=== PATIENT | female | born 1930 | race Caucasian/White ===

== ENCOUNTER 2016-04-01 06:58 | Day surgery (SDC) | payer OTHER ==
[2016-04-01] VITALS (14 sets, daily range): BP systolic 114–148; BP diastolic 70–85; PULSE 64–97; RESP 16–18; TEMP 97.5–98.9; O2SAT 96–100
[~2016-04-01] VITALS: Ht 152.4 cm; Wt 61.5 kg
[2016-04-01 08:00] LABS: AUTOMATED NEUTROPHIL # 4.4 TH/MM3 (1.8-7.7); BASOPHIL % 0.6 % (0.0-2.0); EOSINOPHIL % 0.7 % (0.0-4.0); HEMATOCRIT 43.3 % (35.0-46.0); HEMO FLAGS DIFF FINAL; LYMPH % 16.8 % (9.0-44.0); MEAN CELL VOLUME 91.3 FL (80.0-100.0); MEAN CORPUSCULAR HEMOGLOBIN 29.9 PG (27.0-34.0); MEAN CORPUSCULAR HGB CONC 32.7 % (32.0-36.0); MONO % 10.1 % (0.0-8.0); NEUT % 71.8 % (16.0-70.0); PLATELET COUNT 168 TH/MM3 (150-450); RED BLOOD COUNT 4.74 MIL/MM3 (4.00-5.30); WHITE BLOOD COUNT 6.2 TH/MM3 (4.0-11.0)
[2016-04-01 08:11] LABS: APTT (PATIENT) 27.1 SEC (24.3-30.1); INTERNATIONAL NORMALIZED RATIO 1.5 RATIO; PROTHROMBIN TIME - PATIENT 17.3 SEC (9.8-11.6)
[2016-04-01] MEDS ORDERED: ASPI1TAB69 PO (08:19)
[2016-04-01] MEDS ORDERED: INSU1INJ5 SQ (08:19)
[2016-04-01] MEDS ORDERED: ENAL5TAB PO (08:19)
[2016-04-01] MEDS ORDERED: MAGN200T PO (08:19)
[2016-04-01] MEDS ORDERED: FLUT1INH INH (08:19)
[2016-04-01] MEDS ORDERED: COUM5TAB PO (08:19)
[2016-04-01] MEDS ORDERED: AMIO200T PO (08:19)
[2016-04-01] MEDS ORDERED: CALC1TAB12 PO (08:19)
[2016-04-01] MEDS ORDERED: CINN500C PO (08:19)
[2016-04-01] MEDS ORDERED: FURO1TAB62 PO (08:19)
[2016-04-01] MEDS ORDERED: COQ-100C2 PO (08:19)
[2016-04-01] MEDS ORDERED: MULT1TAB84 PO (08:20)
[2016-04-01] MEDS ORDERED: HOME OXYGEN NASAL (08:20)
[2016-04-01] MEDS ORDERED: OMEG100010 PO (08:20)
[2016-04-01] MEDS ORDERED: [UNRECOGNIZED DRUG - CODE] T-DERMAL (08:20)
[2016-04-01] MEDS ORDERED: VITATAB11 PO (08:20)
[2016-04-01] MEDS ORDERED: METO100T9 PO (08:20)
[2016-04-01] MEDS ORDERED: LATA0.002 EACH EYE (08:20)
[2016-04-01 08:21] LABS: BICARBONATE 38.7 MEQ/L (21.0-32.0); POTASSIUM 3.1 MEQ/L (3.5-5.1)
[2016-04-01] MEDS ORDERED: CHLORHEXIDINE GLUCONATE 2 % 1 PACK (2 CLOTHS) TOP SCH (08:30)
[2016-04-01] MEDS ORDERED: INSULIN HUMAN REGULAR 1,000 UNITS/10 ML VIAL SQ PRN (08:30)
[2016-04-01] MEDS ORDERED: MUPIROCIN 2% OINT 1 APPLIC/GM SYR NASAL SCH (08:30)
[2016-04-01] MEDS ORDERED: LORazepam 1 MG TAB SL SCH (08:30)
[2016-04-01] MEDS: LACTATED RINGER'S 1000 ML IV SCH (08:30)
[2016-04-01] MEDS ORDERED: METOPROLOL TARTRATE 25 MG TAB PO PRN (08:30)
[2016-04-01] MEDS ORDERED: POVIDONE IODINE 5% (ANTISEPSIS KIT) 4 APPLICATIONS EACH NARE SCH (08:30)
[2016-04-01] MEDS ORDERED: Hold AM Insulin & AM Hypoglycemic medications in diabetic patients XX PRN (08:30)
[2016-04-01] MEDS ORDERED: NS 1000 ML IV SCH (08:30)
[2016-04-01] MEDS ORDERED: SODIUM CHLORID 0.9% 500 ML IV SCH (08:30)
[2016-04-01] MEDS ORDERED: ceFAZolin 2 GM PREMIX 50 ML IV SCH (08:30)
[2016-04-01] MEDS ORDERED: ISOPROTERENOL HCL 1 MG/5 ML AMP ONE (08:39)
[2016-04-01] MEDS ORDERED: POTASSIUM CHLORIDE INJ 40 MEQ in SODIUM CHLORID 0.9% 500 ML INJ 500 ML IV ONE (09:00)
[2016-04-01] MEDS ORDERED: VANCOMYCIN 500 MG VIAL ONE (09:21)
[2016-04-01] MEDS ORDERED: LIDOCAINE HCL 2% 50 ML VIAL ONE (09:21)
[2016-04-01] MEDS ORDERED: VANCOMYCIN HCL 1000 MG VIAL ONE (09:21)
[2016-04-01] MEDS ORDERED: ceFAZolin INJ 1,000 MG VIAL ONE (09:22)
[2016-04-01] MEDS ORDERED: HEPARIN-NS/PF INJ 500 ML ONE (09:23)
[2016-04-01] MEDS ORDERED: PHENYLEPH/NS 1000 MCG/10 ML SYR IV ONE (10:30)
[2016-04-01] MEDS ORDERED: ONDANSETRON HCL 4 MG/2 ML VIAL IV PUSH ONE (10:30)
[2016-04-01] MEDS ORDERED: PROPOFOL 200 MG/20 ML AMP IV ONE (10:30)
[2016-04-01] MEDS ORDERED: SODIUM CHLORIDE 0.9% FLUSH 5 ML FLUSH IVF PRN (10:45)
[2016-04-01] MEDS ORDERED: METOCLOPRAMIDE HCL 10 MG/2 ML VIAL IV PRN (10:45)
[2016-04-01] MEDS ORDERED: LIDOCAINE HCL 1% 50 ML VIAL INFIL PRN (10:45)
[2016-04-01] MEDS ORDERED: ACETAMINOPHEN/CODEINE 300 MG/30 MG TAB PO PRN (10:45)
[2016-04-01] MEDS ORDERED: LORazepam 2 MG/ML VIAL IV PRN (10:45)
[2016-04-01] MEDS ORDERED: BACITRACIN OINT 0.9 GM PKT TOP ONE (10:45)
[2016-04-01] MEDS ORDERED: ONDANSETRON HCL 4 MG/2 ML VIAL IV PRN (10:45)
[2016-04-01] MEDS ORDERED: ATROPINE SULFATE 1 MG/ML VIAL IV PRN (10:45)
[2016-04-01] MEDS ORDERED: SODIUM CHLOR 0.9% 250 ML INJ 250 ML IV PRN (10:45)
--- NOTE | 2016-04-01 11:43 | RADRPT ---
EXAM DATE/TIME: 04/01/2016 11:14 [place] COMPARISON: No previous studies available for comparison. INDICATIONS : Post ICD placement MEDICAL HISTORY : Congestive heart failure. SURGICAL HISTORY : None. ENCOUNTER: Initial ACUITY: 1 day PAIN SCORE: Non-responsive. LOCATION: Bilateral chest FINDINGS: Medical devices box projects over the lateral left lung. Unipolar lead tip projects in the right julisa tricle. No evidence of pneumothorax. Mild interstitial opacities in the central lungs bilaterally, left greater than right and mild hazy opacity at the right lower chest with blunting of the costophre panchito angle suggests a small right pleural effusion. CONCLUSION: No evidence of pneumothorax status post placement of AICD. Elvis Solis MD on April 01, 2016 at 11:41 Board Certified Radiologist. This report was verified electronically.
[2016-04-01] MEDS ORDERED: DO NOT ADM ANY ANTICOAGULANT DRUGS XX PRN (11:45)
[2016-04-01] MEDS: ceFAZolin 2 GM PREMIX 50 ML IV SCH (17:10)
--- NOTE | 2016-04-01 18:34 | EKG ---
Date Performed: 04/01/2016 Time Performed: 11:26:48 PTAGE: 85 years EKG: ATRIAL FIBRILLATION NONSPECIFIC ST & T-WAVE ABNORMALITY ABNORMAL RHYTHM ECG PREVIOUS TRACING : 04/01/2016 08.03 Compared to the previous tracing, rate has decreased DOCTOR: Benjy Jerome Interpretating Date/Time 04/01/2016 18:32:59
--- NOTE | 2016-04-01 19:03 | EKG ---
Date Performed: 04/01/2016 Time Performed: 08:03:22 PTAGE: 85 years EKG: Atrial fibrillation. Lateral ST-T changes are nonspecific Low QRS voltages in limb leads Ab normal ECG PREVIOUS TRACING : 01/25/2006 16.58 Compared to the previous tracing, non-specific ST-T waves c hanges are new DOCTOR: Benjy Jerome Interpretating Date/Time 04/01/2016 19:02:03
[2016-04-01] MEDS: FUROSEMIDE 20 MG TAB PO SCH (21:29)
[2016-04-01] MEDS: ACETAMINOPHEN/CODEINE 300 MG/30 MG TAB PO PRN (21:30)
[2016-04-01] MEDS ORDERED: WARFARIN SOD 5 MG TAB PO ONE (22:30)
[2016-04-01] MEDS ORDERED: INSULIN DETEMIR 100 UNITS/ML VIAL SQ SCH (22:30)
[2016-04-01] MEDS: SODIUM CHLORIDE 0.9% FLUSH 5 ML FLUSH IVF SCH (23:02)
[2016-04-02] VITALS (11 sets, daily range): BP systolic 111–115; BP diastolic 71–83; PULSE 72–98; RESP 16–18; TEMP 97.6–98.1; O2SAT 96–98
[2016-04-02] MEDS: ceFAZolin 2 GM PREMIX 50 ML IV SCH ×2 (01:00→09:10)
[2016-04-02] MEDS: ACETAMINOPHEN/CODEINE 300 MG/30 MG TAB PO PRN (05:46)
[2016-04-02 07:33] LABS: APTT (PATIENT) 30.7 SEC (24.3-30.1); INTERNATIONAL NORMALIZED RATIO 2.3 RATIO; PROTHROMBIN TIME - PATIENT 26.2 SEC (9.8-11.6)
[2016-04-02] MEDS: LACTATED RINGER'S 1000 ML IV SCH (08:30)
--- NOTE | 2016-04-02 08:36 | PD.CARD.PN ---
Subjective Subjective Remarks No chest pain, no shortness of breath, no left chest wall pain Objective Medications Current Medications Medications (Trade) Dose Ordered Sig/Karen Route Start Time Stop Time Status Last Admin Miscellaneous Information Hold AM Insulin & ... UNSCH PRN XX 04/01/16 08:30 04/05/16 08:29 Sodium Chloride 1,000 ml @ 30 mls/hr Q24H IV 04/01/16 08:30 (Lr 1000 ml Inj) 1,000 ml @ 30 mls/hr Q24H IV 04/01/16 08:30 (Ativan Inj) 0.5 mg UNSCH PRN IV 04/01/16 10:45 04/02/16 10:44 Atropine Sulfate 0.5 mg 0.5 mg UNSCH PRN IV 04/01/16 10:45 (NS 250 ml Inj) 250 ml @ 500 mls/hr ONCE PRN IV 04/01/16 10:45 04/02/16 10:44 (Reglan Inj) 10 mg Q4H PRN IV 04/01/16 10:45 (Zofran Inj) 4 mg Q4H PRN IV 04/01/16 10:45 Lidocaine HCl 10 ml 10 ml UNSCH PRN INFIL 04/01/16 10:45 04/02/16 10:44 (Ancef 2 Gm Premix) 50 ml @ 100 mls/hr Q8H IV 04/01/16 17:00 04/02/16 09:29 04/02/16 01:00 (Tylenol-Codeine #3) 1 tab Q4H PRN PO 04/01/16 10:45 04/02/16 05:46 (Tylenol-Codeine #3) 2 tab Q4H PRN PO 04/01/16 10:45 (NS Flush) 2 ml BID IVF 04/01/16 21:00 04/01/16 23:02 (NS Flush) 2 ml UNSCH PRN IVF 04/01/16 10:45 (Cordarone) 200 mg DAILY PO 04/02/16 09:00 (Ecotrin Ec) 81 mg DAILY PO 04/02/16 09:00 (Vasotec) 5 mg DAILY PO 04/02/16 09:00 (Breo Ellipta 100-25 Inh) 1 puff DAILY INH 04/02/16 09:00 (Lasix) 20 mg BID PO 04/01/16 21:00 04/01/16 21:29 (Theragran M Tab) 1 tab DAILY PO 04/02/16 09:00 (Coumadin) 5 mg DAILY@1600 PO 04/02/16 16:00 (Allbee C) 1 tab DAILY PO 04/02/16 09:00 (Mag-Ox) 400 mg DAILY PO 04/02/16 09:00 (Toprol Xl) 100 mg DAILY PO 04/02/16 09:00 Miscellaneous Information ALL NURSING DEPARTME... UNSCH PRN XX 04/01/16 11:45 04/02/16 11:44 (Levemir Inj) 8 units HS SQ 04/01/16 22:30 04/01/16 23:03 Vital Signs / I&O Vital Signs Date Time Temp Pulse Resp B/P Pulse Ox O2 Delivery O2 Flow Rate FiO2 04/02/16 06:00 76 04/02/16 05:00 76 04/02/16 04:41 98.1 80 16 115/83 98 04/02/16 04:00 78 04/02/16 03:00 80 04/02/16 02:00 84 04/02/16 01:00 98 04/02/16 00:00 90 04/01/16 23:53 98.0 95 16 117/75 97 04/01/16 23:00 96 04/01/16 22:00 88 04/01/16 21:00 92 04/01/16 20:23 97.9 94 16 121/79 96 04/01/16 20:00 94 04/01/16 19:00 87 04/01/16 18:00 81 04/01/16 17:00 97 04/01/16 16:00 83 04/01/16 15:00 82 04/01/16 15:00 98.9 77 18 114/70 100 04/01/16 14:45 78 04/01/16 13:00 97.5 64 18 115/75 100 04/01/16 12:30 65 12 128/78 100 Nasal Cannula 2 04/01/16 12:15 68 12 111/80 100 Nasal Cannula 2 04/01/16 12:00 63 12 106/71 99 Nasal Cannula 2 04/01/16 11:45 61 14 104/70 99 Nasal Cannula 2 04/01/16 11:30 66 12 108/70 99 Nasal Cannula 2 04/01/16 11:15 65 12 109/70 100 Simple Mask 6 04/01/16 11:02 97.6 69 12 109/69 100 Simple Mask 6 I/O 04/01/16 04/01/16 04/01/16 04/02/16 04/02/16 04/02/16 07:00 15:00 23:00 07:00 15:00 23:00 Intake Total 400 ml 240 ml 620 ml Output Total 350 ml Balance 400 ml -110 ml 620 ml Intake Oral 240 ml 420 ml IV Total 200 ml Other 400 ml Output Urine Total 350 ml # Voids 2 # Bowel Movements 0 1 Physical Exam GENERAL: NAD, AAOx3 SKIN: Warm and dry. HEAD: Atraumatic. Normocephalic. EYES: Pupils equal and round. No scleral icterus. No injection or drainage. ENT: No nasal bleeding or discharge. Mucous membranes pink and moist. NECK: Trachea midline. No JVD. CARDIOVASCULAR: Irregularly irregular. Left chest wall incision C/D/I, minimal ecchymosis RESPIRATORY: No accessory muscle use. Clear to auscultation. Breath sounds equal bilaterally. GASTROINTESTINAL: Abdomen soft, non-tender, nondistended. Hepatic and splenic margins not palpable. MUSCULOSKELETAL: Trace edema NEUROLOGICAL: Awake and alert. No obvious cranial nerve deficits. Motor grossly within normal limits. Five out of 5 muscle strength in the arms and legs. Normal speech. PSYCHIATRIC: Appropriate mood and affect; insight and judgment normal. Laboratory Laboratory Tests Test 04/02/16 05:19 Prothrombin Time 26.2 SEC Prothromb Time International 2.3 RATIO Ratio Activated Partial 30.7 SEC Thromboplast Time Assessment and Plan Problem List: (1) Atrial fibrillation (2) ICD (implantable cardioverter-defibrillator) in place (3) Cardiomyopathy Assessment and Plan 1) S/P placement of ICD left chest wall for secondary prevention by Dr. Banuelos 2) Doing well, plan discharge today 3) Follow up in the office as scheduled Benjy Jerome DO Apr 02, 2016 08:35
--- NOTE | 2016-04-02 08:44 | HHI.DS ---
Discharge Summary Admission Date 04/01/16 Discharge Date: Apr 02, 2016 (1) Atrial fibrillation Diagnosis: Secondary (2) ICD (implantable cardioverter-defibrillator) in place Diagnosis: Principal (3) Cardiomyopathy Diagnosis: Principal Procedures Placement of Biotronik Itrevia DX ICD CBC/BMP: 04/01/16 0735 04/01/16 0735 Significant Findings Laboratory Tests Test 04/01/16 04/02/16 07:35 05:19 Neutrophils (%) (Auto) 71.8 % (16.0-70.0) Monocytes (%) (Auto) 10.1 % (0.0-8.0) Prothrombin Time 17.3 SEC 26.2 SEC (9.8-11.6) (9.8-11.6) Potassium Level 3.1 MEQ/L (3.5-5.1) Carbon Dioxide Level 38.7 MEQ/L (21.0-32.0) Estimat Glomerular Filtration 62 ML/MIN (>89) Rate Random Glucose 128 MG/DL (74-106) Activated Partial 30.7 SEC Thromboplast Time (24.3-30.1) Pt Condition on Discharge: Good Discharge Disposition: Discharge Home Discharge Instructions DIET: Follow Instructions for: Heart Healthy Diet Activities you can perform: See Additionl Instruction Additional Activity Instructio: No lifting more than 10 lbs for 5-7 days. Do not lift your left arm above 90 degrees. Benjy Jerome DO Apr 02, 2016 08:44
[2016-04-02] MEDS ORDERED: AMIODARONE 200 MG TAB PO SCH (09:00)
[2016-04-02] MEDS ORDERED: FLUTICASONE 100 MCG/VILANTEROL 25 MCG INHALER INH SCH (09:00)
[2016-04-02] MEDS ORDERED: ENALAPRIL MALEATE 5 MG TAB PO SCH (09:00)
[2016-04-02] MEDS ORDERED: MULTIVITAMINS/MINERALS THERAPEUTIC TAB PO SCH (09:00)
[2016-04-02] MEDS ORDERED: ASPIRIN EC 81 MG TABEC PO SCH (09:00)
[2016-04-02] MEDS ORDERED: METOPROLOL SUCCINATE 50 MG EXTENDED RELEASE TAB PO SCH (09:00)
[2016-04-02] MEDS ORDERED: VITAMIN B COMPLEX/VIT C TAB PO SCH (09:00)
[2016-04-02] MEDS ORDERED: MAGNESIUM OXIDE 400 MG TAB PO SCH (09:00)
[2016-04-02] MEDS: FUROSEMIDE 20 MG TAB PO SCH (09:09)
[2016-04-02] MEDS: SODIUM CHLORIDE 0.9% FLUSH 5 ML FLUSH IVF SCH (09:10)
[2016-04-02] MEDS ORDERED: WARFARIN SOD 5 MG TAB PO SCH (16:00)
--- NOTE | 2016-04-02 17:32 | EKG ---
Date Performed: 04/02/2016 Time Performed: 05:54:08 PTAGE: 85 years EKG: Atrial fibrillation Inferior/lateral ST-T changes are nonspecific Since previous tracing, n o significant change noted Abnormal ECG PREVIOUS TRACING : 04/01/2016 11.26 DOCTOR: Melody Johnston Interpretating Date/Time 04/02/2016 17:29:21
--- NOTE | 2016-04-05 11:56 | PD.CARD ---
SINGLE CHAMBER DEFIB IMPLANT PROCEDURE DATE: Apr 01, 2016 NYHA Classification: Class II (Mild) Prevention: Primary Single Chamber Defib Implant PROCEDURE: Single chamber defibrillator implantation and device testing. INDICATIONS: Ms. Stanford is a 85 -year-old female with hx congestive heart failure, ejection fraction 20%, non ischemic cardiomyopathy, EF 20% Feb 2016, on optimal medical management per guideline , who undergo defibrillator implantation for sudden prevention primary prevention. The risks, the nature and the benefit of the procedure are clearly stated to her . Risks include pneumothorax, cardiac perforation, stroke and even . She understood and agreed to proceed. PROCEDURE: As written, informed consent was obtained prior EP study, the patient was kept on the table where she was prepped and draped in the sterile fashion. Conscious sedation was initiated and maintained throughout the procedure by anesthesiologist. Once sedation was verified, the left infraclavicular area was anesthetized with 2% Xylocaine. Using modified Seldinger technique, the left subclavian vein was cannulated on one occasion and one guide wire was advanced. Then, using #11 blade scalpel, a 3-cm incision was made two fingerbreadths below left clavicle. This incision was then taken down to the deep fascial layer using Bovie cautery and blunt dissection. Into the inferomedial direction, a device pocket was dissected, then the wire was dissected into the pocket. A 2-0 Vicryl suture was placed around the wires to prevent bleeding. At this point, over the wire, the 8- Lao dilator and introducer was advanced. As dilator and wire were removed, an active fixation right ventricular pacing, sensing and defibrillatory lead was advanced. After adequate pacing and sensing thresholds were obtained, the lead was secured in the pocket with #2 Ethibond suture. At that point, the pocket was copiously irrigated with antibiotic solution. The leads were connected to the generator and placed into the pocket. I did proceed with NIPS. Initial induction consisted of T-wave shock which induced ventricular fibrillation which was adequately detected and treated by the ICD generator, delivering a 20-joule defibrillatory shock converting the patient back into sinus rhythm. Shocking impedance was 78 ohms, charge time 3.8seconds. At that point NIPS was complete. I did proceed with wound closure. The deep fascial layer was approximated with 2-0 Vicryl suture in a continuous fashion. The subcutaneous layer was approximated with 2-0 Vicryl suture in a continuous fashion. The subcuticular layer was approximated with 2-0 Vicryl suture in a continuous fashion. Dermabond adhesive was applied to the wound, followed by a sterile pressure dressing. There was no complication. The patient tolerated procedure. Blood loss minimal. 1. Implanted Hardware: The implanted defibrillator generator is a [employer], model number 850640, serial number [id number]. The right ventricular pacing, sensing and defibrillatory lead is a [employer] model number 707400, serial number [id number]. 2. Thresholds: The right ventricular pacing threshold in the bipolar mode was 1.0volts at 0.5 milliseconds, lead impedance 563 ohms and R-wave at 9.2 mV. Sensing P wave on implant was 0.8 mv. The right ventricular defibrillatory threshold less than 20 joules shocking, impedance 78 ohms, charge time 3.8 seconds. 3. Settings: The device set in VVI 40 defibrillatory portion for two zones, one zone for ventricular tachycardia between 160 and 240 beats per minute. Initial therapy consists of one burst of ATP, one ramp, 81%, 10 pulse, 10 millisecond decremental, followed by 20, then 30 and all subsequent shocks at 40 joules defibrillatory shock, the second zone for ventricular fibrillation above 240 beats per minute, first therapy at 30 and all subsequent shocks at 40 joules defibrillatory shock. CONCLUSIONS: Successful defibrillator implantation and device testing. COMMENT AND RECOMMENDATIONS: The patient will be transferred to the telemetry unit, will be observed and when stable can be discharged home. Milo Banuelos MD Apr 05, 2016 11:55
--- NOTE | 2016-04-05 12:37 | MA ---
cc: SARI HOWARD M.D. DATE: 04/01/2016 PROCEDURE Electrophysiology study and CS cannulation. INDICATION Mrs. Stanford is an 85-year-old female with congestive heart failure and cardiomyopathy on optimal medical treatment, ejection fraction 20%, who is to undergo electrophysiology study and device insertion for sudden prevention. The risks, the nature and the benefit of the procedure are clearly stated to her. The risks include pneumothorax, cardiac perforation, stroke, need for open heart surgery, and even . The patient understood and agreed to proceed. DETAILS OF PROCEDURE After written informed consent was obtained, the patient was brought to the EP lab where she was prepped and draped in the usual sterile fashion. Conscious sedation was initiated and maintained throughout the procedure by the anesthesiologist. Once sedation was verified, the right inguinal area was anesthetized with 2% Xylocaine. Using modified Seldinger technique, the right femoral vein was cannulated on three occasions and three guidewires were advanced. Over the wires two 5 and one 6 [place] Hemaquets were advanced. Then under fluoroscopic guidance through the 5 and 6 [place] Hemaquets, three 5 [place] Cam curved quadripolar electrophysiology catheters were advanced and placed along the His as well as coronary sinus. The patient was in atrial fibrillation. The right atrial catheter was placed at the right ventricular apex. Ventricular pacing protocol was performed. Ventricular pacing protocol consisted of incremental ventricular pacing as well as programmed stimulation with 110 cycle length and up to three extrastimuli delivered. During ventricular pacing protocol the systolic blood pressure dropped in the 60s. The patient needed pressors on multiple occasions. At that point I decided to discontinue ventricular pacing protocol. All catheters were removed. The patient is going to be observed, kept on the table, and if stable a single-chamber defibrillator will be implanted for sudden primary prevention. Blood loss was minimal. FINDINGS 1. Electrocardiogram: At baseline the patient was in atrial fibrillation. Post procedure the electrocardiogram was unchanged. 2. Basic interval: Basic cycle length was around 632 milliseconds. HV was around 48-50 milliseconds. 3. Ventricular pacing protocol: No tachyarrhythmia was induced. CONCLUSIONS Negative electrophysiology study for ventricular tachyarrhythmia. COMMENT/RECOMMENDATION The patient has an ejection fraction of around 20-25%, a high risk for sudden and on optimal medical treatment for over three months. She will undergo single-chamber defibrillator insertion for sudden primary prevention. MD LIDA Hamm/IVONNE /11:59 AM /12:25 PM
== END 2016-04-02 11:28 | disposition home or self-care (01) ==
LOC: HDIC 06:58 → HDOC 06:58 → HDIC 07:15 → HCIS 13:05 → HDOC 04-02 11:28
PROVIDERS: ATTEND Internal Medicine Interventional Cardiology
DX: I11.0 Hypertensive heart disease with heart failure (principal); I50.20 Unspecified systolic (congestive) heart failure; I42.0 Dilated cardiomyopathy; I48.2 Chronic atrial fibrillation; I35.0 Nonrheumatic aortic (valve) stenosis; R06.00 Dyspnea, unspecified; E11.59 Type 2 diabetes mellitus with other circulatory complications; Z79.84 Long term (current) use of oral hypoglycemic drugs; Z79.01 Long term (current) use of anticoagulants; Z79.82 Long term (current) use of aspirin
CPT/HCPCS: 33249; 71010; 80048; 82948; 85025; 85610; 85730; 86850; 86900; 86901; 93005; 93620; 93623; C1722; C1730; C1777; J0690; J1644; J2370; J2405; J3010; J3370; J3480; J7040